=== PATIENT | male | born 1980 | race African-American/Black ===

== ENCOUNTER 2018-09-05 09:19 | Emergency (ER) | payer OTHER ==
[2018-09-05 09:30] VITALS: BP 109/67; PULSE 92; TEMP 97.6; BMI 25.1
--- NOTE | 2018-09-05 10:43 | PDOC ---
History of Present Illness - General Chief Complaint: Wound Stated Complaint: WOUND CHECK Time Seen by Provider: 09/05/18 09:58 History Source: Patient Exam Limitations: Clinical Condition - History of Present Illness Initial Comments: 09/05/18 11:48 Patient with history of spinal fusion a month ago on August 10 present for wound check after girlfriend complaining of wound and found a small area of pain from the incision which she believes might potentially be infection. Patient reported he had of 2 weeks follow-up with spine surgeon in [place] but could not be seen because compresses to most done in office as being scheduled for follow-up in the week from now. Patient denies fever, chills, weakness. Denies any other symptoms Timing/Duration: reports: yesterday Past History - Past Medical History Allergies/Adverse Reactions: Allergies Allergy/AdvReac Type Severity Reaction Status Date / Time acetaminophen [From Tylenol] AdvReac Severe Hives Verified 09/05/18 09:21 Home Medications: Ambulatory Orders NK [No Known Home Medication] 09/05/18 COPD: No - Suicide/Smoking/Psychosocial Hx Smoking History: Never smoked Drug/Substance Use Hx: Yes (MARIJUANA) Review of Systems - Review of Systems Able to Perform ROS?: Yes Is the patient limited [place] proficient: No Constitutional: No: Chills, Fever, Weakness HEENTM: No: Symptoms Reported Respiratory: No: Symptoms reported Cardiac (ROS): No: Symptoms Reported ABD/GI: No: Symptoms Reported, Nausea, Vomiting Musculoskeletal: Yes: Muscle Pain (over lumbar spine) Integumentary: Yes: See HPI, Other (surgical wound to back) All Other Systems: Reviewed and Negative *Physical Exam - Vital Signs Last Vital Signs Temp Pulse Resp BP Pulse Ox 97.6 F 92 H 20 109/67 09/05/18 09:21 09/05/18 09:21 09/05/18 09:21 09/05/18 09:21 - Physical Exam Comments: 09/05/18 11:51 GENERAL: Well developed, well nourished. Awake and alert. No acute distress. CARDIOVASCULAR: Regular rate and rhythm. No murmurs, rubs, or gallops. PULMONARY: No evidence of respiratory distress. Lungs clear to auscultation bilaterally. No wheezing, rales or rhonchi. MUSCULOSKELETAL : 4 cm linear well-healed surgical wound to right paravertebral muscle of the lumbar spine. No redness or. Wound. Another 3 cm vertical were healing incision scar to the left paravertebral muscle of lumbar spine with small 1 mm area of wound dehiscence. No redness or discharge from wound. No evidence of wound infection.. No bony deformities NEUROLOGICAL: Alert, awake, appropriate. No motor deficits in the lower extremities. Gait is normal without ataxia. PSYCHIATRIC: Cooperative. Good eye contact. Appropriate mood and affect. General Appearance: Yes: Nourished, Appropriately Dressed. No: Apparent Distress Medical Decision Making - Medical Decision Making 09/05/18 11:53 Patient with history of spinal fusion or lumbar spine done a month ago present for wound check status post partner complaining wound and found small area of opening to surgical incision area. Exam significant for 4 cm linear well-healed surgical wound to right paravertebral muscle of the lumbar spine. No redness or. Wound. Another 3 cm vertical were healing incision scar to the left paravertebral muscle of lumbar spine with small 1 mm area of wound dehiscence. No redness or discharge from wound. No evidence of wound infection. Wound cleaned with Betadine and a trace and apply to wound. Small area of wound dehiscence reapproximated with Steri-Strips. Patient educated on home wound care and advised to follow-up with spine surgeon. *DC/Admit/Observation/Transfer Diagnosis at time of Disposition: Hx of spinal fusion, Encounter for postoperative wound check - Discharge Dispostion Disposition: HOME Condition at time of disposition: Stable Decision to Admit order: No - Referrals Referrals: ON STAFF,NOT [Primary Care Provider] - - Patient Instructions Printed Discharge Instructions: DI for Wound Infection Additional Instructions: Apply Neosporin to wound twice a day until healed. Take Tylenol as needed for pain. Follow-up with spine surgeon as scheduled - Post Discharge Activity
== END 2018-09-05 10:45 | disposition home or self-care (01) ==
LOC: JERFT 09:19
DX: T81.30XA Disruption of wound, unspecified, initial encounter (principal); Z48.89 Encounter for other specified surgical aftercare; Z98.1 Arthrodesis status
CPT/HCPCS: 99281-25

== ENCOUNTER 2021-01-28 09:31 | Emergency (ER) | payer OTHER ==
[2021-01-28 09:43] VITALS: BP 114/75; TEMP 97; BMI 24.4
[2021-01-28] MEDS ORDERED: ASPIRIN 325 MG TABLET PO ONE (10:20)
[2021-01-28] MEDS ORDERED: KETOROLAC TROMETHAMINE 30 MG/1 ML VIAL IM ONE (10:23)
[2021-01-28] MEDS ORDERED: KETOROLAC TROMETHAMINE 30 MG/1 ML VIAL ONE (11:00)
[2021-01-28] MEDS ORDERED: ASPIRIN 325 MG ENTERIC COATED TABLET (FP) ONE (11:04)
[2021-01-28 11:26] LABS: BASO % 0.5 % (0-2.0); EOS % 1.6 % (0-4.5); HEMATOCRIT 42.2 % (35.4-49); HEMOGLOBIN 14.3 GM/dL (11.7-16.9); LYMPH % 25.2 % (8-40); MCH 28.5 pg (25.7-33.7); MEAN CELL VOLUME 83.9 fl (80-96); MEAN PLT VOLUME 9.4 fl (7.5-11.1); NEUT % 65.7 % (42.8-82.8); PLATELET COUNT 195 10^3/uL (134-434); RBC 5.03 M/mm3 (4.00-5.60); RDW 13.6 % (11.9-15.9); WHITE BLOOD COUNT 7.3 K/mm3 (4.0-10.0)
[2021-01-28 11:50] LABS: CHLORIDE 109 mmol/L (98-107); SODIUM 140 mmol/L (136-145)
[2021-01-28 11:52] LABS: ANION GAP 5 MMOL/L (8-16); CALCIUM 8.3 mg/dL (8.5-10.1); CO2 26 mmol/L (21-32)
[2021-01-28 11:53] LABS: BLOOD UREA NITROGEN 12.9 mg/dL (7-18); GLUCOSE,RANDOM 89 mg/dL (74-106)
[2021-01-28 11:56] LABS: CREATININE 0.9 mg/dL (0.55-1.3); SGOT/AST 20 U/L (15-37); SGPT/ALT 42 U/L (13-61)
[2021-01-28 11:57] LABS: BILIRUBIN,TOTAL 0.5 mg/dL (0.2-1); TOT PROT 6.6 g/dl (6.4-8.2)
[2021-01-28 11:58] LABS: ALK PHOS 84 U/L (45-117)
[2021-01-28 13:05] VITALS: PULSE 61
== END 2021-01-28 12:40 | disposition home or self-care (01) ==
LOC: JER 09:31
PROC: 3E0233Z Introduction of Anti-inflammatory into Muscle, Percutaneous Approach (ICD-10-PCS; principal; 2021-01-28)
DX: R07.9 Chest pain, unspecified (principal)
CPT/HCPCS: 36415; 71046-TC-FY; 80053; 82550; 84484; 85025; 93005; 93010; 99285-25